=== PATIENT | female | born 1950 | race Caucasian/White ===

== ENCOUNTER 2017-10-09 15:49 | Observation (INO) | payer OTHER, MEDICARE ==
--- NOTE | 2017-10-09 16:14 | RAD REPORT ---
EXAM DESCRIPTION: CT - Head Brain Wo Cont - 10/09/2017 4:06 pm CLINICAL HISTORY: Right-sided weakness and numbness, slurred speech COMPARISON: CT head January 2015 TECHNIQUE: Axial 5 mm thick images of the head were obtained without IV contrast. All CT scans are performed using dose optimization technique as appropriate and may include automated exposure control or mA/KV adjustment according to patient size. FINDINGS: No intracranial hemorrhage, mass, edema or shift of mid-line structures. No acute infarcti on changes seen. No cortical edema or sulcal effacement. Mild to moderate atrophy changes are present . Patient has advanced chronic ischemic change. Ventricles are prominent and are borderline or slight ly out of proportion to the amount of volume loss. Correlation can be made with any normal pressure h ydrocephalus exam findings. Intracranial findings are not substantially different from the comparison . Mastoid air cells and visualized portions of the paranasal sinuses are clear. No acute bony findings. IMPRESSION: No intracranial hemorrhage and no acute cortical based infarction identified. Mild to moderate atrophy with advanced chronic ischemic change. Chronic ischemic change can mask non hemorrhagic infarction. Ventricular size is borderline to slightly out of proportion to volume loss. This pattern is stable b ut correlation can be made with any exam findings for normal pressure hydrocephalus.
--- NOTE | 2017-10-09 16:33 | RAD REPORT ---
EXAM DESCRIPTION: RAD - Chest Single View - 10/09/2017 4:23 pm CLINICAL HISTORY: Stroke chest film, shortness of breath COMPARISON: January 2015 TECHNIQUE: AP portable chest image was obtained 1612 hours . FINDINGS: No focal lung parenchymal process. No failure or volume overload. Interstitial markings ar e prominent but not clearly different. Heart and vasculature are normal. No measurable pleural effusi on and no pneumothorax. No gross bony abnormality seen. No acute aortic findings suspected. IMPRESSION: No acute cardiopulmonary process. No significant change from comparison.
[2017-10-09 17:00] LABS: Absolute Monocytes 0.8 K/uL (0.1-1.3); Absolute Neutrophil 5.3 K/uL (1.8-8.0); Basophils % 0.5 % (0-1.3); Eosinophils % 4.8 % (0-4.4); Hematocrit 42.4 % (36.0-45.0); Lymphocytes % 30.9 % (15.3-44.8); MCV 92.6 fL (80-100); Monocytes % 8.5 % (3.3-12.3); RBC Red Blood Cell Count 4.57 M/uL (3.86-4.86)
[2017-10-09 17:04] LABS: Protime INR 0.91
[2017-10-09] MEDS ORDERED: ASPIRIN 600 MG/SUPP PR ONE (17:05)
[2017-10-09] MEDS ORDERED: FOLIC ACID 5 MG/ML VIAL ONE (17:06)
[2017-10-09 17:39] LABS: Albumin 3.4 g/dL (3.4-5.0); Bilirubin Direct 0.1 mg/dL (0-0.2); Bilirubin Total 0.4 mg/dL (0.2-1.0); Magnesium 1.6 mg/dL (1.8-2.4); Potassium 3.5 mmol/L (3.5-5.1); Protein, Total 7.5 g/dL (6.4-8.2)
--- NOTE | 2017-10-09 17:55 | EDPHYS ---
Physician Documentation [facility] Name: Alesha Esposito Age: 67 yrs Sex: Female : 1950 Arrival Date: 10/09/2017 Time: 15:53 Bed 7 Private MD: Kandis Savage R ED Physician Jeff Dawkins HPI: 10/09 16:05 This 67 yrs old Female presents to ER via Wheelchair with complaints of S/S jr8 of Possible Stroke. 16:05 The patient's problem is reported as paresthesias, in right upper extremity, in right jr8 side of face, dysphasia, slurred speech. Onset: The symptoms/episode began/occurred acutely, today, at 15:30. Duration: This was a single incident. Context: the episode(s) was witnessed, by family. The symptoms are alleviated by nothing. The symptoms are aggravated by nothing. Associated signs and symptoms: The patient has no apparent associated signs or symptoms. Severity of symptoms: At their worst the symptoms were moderate in the emergency department the symptoms have improved moderately. Patient's baseline: Neuro: alert and fully oriented, Motor: no deficits, Ambulation: walks without assistance, Speech: normal. The patient has experienced a previous episode. The patient has not recently seen a physician. History of CVA in past. Sudden onset of trouble speaking and numbness of face and arm on right side . Historical: - Allergies: 19:35 Iodinated Contrast Media - IV Dye; aa1 - Home Meds: 19:35 metoprolol tartrate 25 mg Oral tab 2 tabs 2 times per day [Active]; Plavix 75 mg Oral aa1 tab 1 tab once daily [Active]; simvastatin 40 mg Oral tab 1 tab once daily [Active]; Humulin N Pen 100 unit/mL (3 mL) Sub-Q inpn 20 unit twice a day [Active]; - PMHx: 19:35 Diabetes - IDDM; Hypertension; High Cholesterol; aa1 - PSHx: 16:01 Heart stents; Cholecystectomy; Tonsillectomy; D \T\ C; hb - Immunization history:: Adult Immunizations up to date. - Social history:: Smoking status: Patient/guardian denies using tobacco. - Ebola Screening: : No symptoms or risks identified at this time. ROS: 16:05 Eyes: Negative for injury, pain, redness, and discharge, ENT: Negative for injury, jr8 pain, and discharge, Neck: Negative for injury, pain, and swelling, Cardiovascular: Negative for chest pain, palpitations, and edema, Respiratory: Negative for shortness of breath, cough, wheezing, and pleuritic chest pain, Abdomen/GI: Negative for abdominal pain, nausea, vomiting, diarrhea, and constipation, Back: Negative for injury and pain, MS/Extremity: Negative for injury and deformity, Skin: Negative for injury, rash, and discoloration. 16:05 Neuro: Positive for numbness, speech changes. Exam: 16:05 Eyes: Pupils equal round and reactive to light, extra-ocular motions intact. Lids and jr8 lashes normal. Conjunctiva and sclera are non-icteric and not injected. Cornea within normal limits. Periorbital areas with no swelling, redness, or edema. ENT: Nares patent. No nasal discharge, no septal abnormalities noted. Tympanic membranes are normal and external auditory canals are clear. Oropharynx with no redness, swelling, or masses, exudates, or evidence of obstruction, uvula midline. Mucous membranes moist. Neck: Trachea midline, no thyromegaly or masses palpated, and no cervical lymphadenopathy. Supple, full range of motion without nuchal rigidity, or vertebral point tenderness. No Meningismus. Cardiovascular: Regular rate and rhythm with a normal S1 and S2. No gallops, murmurs, or rubs. Normal PMI, no JVD. No pulse deficits. Respiratory: Lungs have equal breath sounds bilaterally, clear to auscultation and percussion. No rales, rhonchi or wheezes noted. No increased work of breathing, no retractions or nasal flaring. Abdomen/GI: Soft, non-tender, with normal bowel sounds. No distension or tympany. No guarding or rebound. No evidence of tenderness throughout. Back: No spinal tenderness. No costovertebral tenderness. Full range of motion. Skin: Warm, dry with normal turgor. Normal color with no rashes, no lesions, and no evidence of cellulitis. MS/ Extremity: Pulses equal, no cyanosis. Neurovascular intact. Full, normal range of motion. Neuro: Awake and alert, GCS 15, oriented to person, place, time, and situation. Cranial nerves II-XII grossly intact. Motor strength 5/5 in all extremities. Sensory grossly intact. Cerebellar exam normal. Normal gait. 16:21 Radiologist reports: No acute findings jr8 Vital Signs: 15:55 BP 130 / 65; Pulse 55; Resp 17; Temp 97.2(TE); Pulse Ox 97% on R/A; Pain 0/10; tw2 16:58 Weight 100.7 kg (R); hb 17:21 BP 114 / 60; Pulse 61; Resp 16; Pulse Ox 96% on R/A; Pain 0/10; ph 18:12 BP 118 / 62; Pulse 56; Resp 16; Pulse Ox 96% on R/A; ph 19:30 BP 144 / 76; Pulse 60; Resp 16; Pulse Ox 95% on R/A; Pain 0/10; aa1 20:24 BP 148 / 66; Pulse 63; Resp 16; Pulse Ox 96% on R/A; Pain 0/10; aa1 NIH Stroke Scale Scores: 16:05 NIHSS Score: 0 ph 16:05 NIHSS Score: 0 jr8 [place] Coma Score: 16:13 Eye Response: spontaneous(4). Verbal Response: oriented(5). Motor Response: obeys ph commands(6). Total: 15. MDM: 16:17 Patient medically screened. jr8 16:20 ED course: Patients symptoms have now resolved. No tPA advised given resolution of jr8 symptoms . 17:52 Data reviewed: vital signs, nurses notes, lab test result(s), EKG, radiologic studies, jr8 CT scan, MRI. Data interpreted: Pulse oximetry: on room air is 96 %. Interpretation: normal. Counseling: I had a detailed discussion with the patient and/or guardian regarding: the historical points, exam findings, and any diagnostic results supporting the discharge/admit diagnosis, lab results, radiology results, the need for further work-up and treatment in the hospital. Physician consultation: Chaka Moscoso MD was called at 17:53, was contacted at 17:53, regarding admission, to the telemetry unit. consult, patient's condition, and will see patient. ED course: Dr. Renee contacted and will see patient as well . 10/09 16:20 Order name: Hepatic Function; Complete Time: 17:44 jr8 10/09 16:20 Order name: Magnesium; Complete Time: 17:44 jr8 10/09 16:20 Order name: Basic Metabolic Panel; Complete Time: 17:44 jr8 10/09 16:20 Order name: CBC with Diff; Complete Time: 17:44 8 10/09 16:20 Order name: Protime (+inr); Complete Time: 17:44 8 10/09 16:20 Order name: Urine Microscopic Only; Complete Time: 02:09 8 10/09 15:57 Order name: Head Brain Wo Cont CT; Complete Time: 16:21 hb 10/09 16:20 Order name: Stroke CXR 1 View; Complete Time: 16:37 jr8 10/09 16:58 Order name: MRI - Brain Wo Cont hb 10/09 17:27 Order name: Glucose, Ancillary Testing; Complete Time: 17:44 EDMS 10/09 19:36 Order name: MRI; Complete Time: 02:09 EDMS 10/09 16:20 Order name: EKG; Complete Time: 16:21 8 10/09 16:20 Order name: Accucheck; Complete Time: 16:46 8 10/09 16:20 Order name: Cardiac monitoring; Complete Time: 16:45 8 10/09 16:20 Order name: EKG - Nurse/Tech; Complete Time: 16:45 8 10/09 16:20 Order name: IV Saline Lock; Complete Time: 17:00 [facility] 10/09 16:20 Order name: Labs collected and sent; Complete Time: 17:00 [facility] 10/09 16:20 Order name: NPO; Complete Time: 16:45 [facility] 10/09 16:20 Order name: O2 Per Protocol; Complete Time: 16:45 [facility] 10/09 16:20 Order name: O2 Sat Monitoring; Complete Time: 16:45 8 10/09 16:20 Order name: Stroke Swallow Screen; Complete Time: 16:34 10/09 18:05 Order name: CONS Physician Consult EDMS Administered Medications: 16:34 Not Given (Other Intervention Used): Aspirin Chewable Tablet 324 mg PO once; 81 mg la1 tablets x 4 17:10 Drug: foLIC Acid 1 mg Route: IVPB; Site: right antecubital; ph 18:16 Follow up: Response: No adverse reaction; IV Status: Completed infusion ph 17:10 Drug: Aspirin Suppository 300 mg Route: MN; ph 18:16 Follow up: Response: No adverse reaction ph 18:45 Drug: Magnesium Sulfate 2 grams Route: IVPB; Infused Over: 2 hrs; Site: right ph antecubital; 20:31 Follow up: IV Status: Completed infusion aa1 Point of Care Testing: Blood Glucose: 16:13 Blood Glucose: 101 mg/dL; ph Ranges: Critical Glucose Levels:Adult <50 mg/dl or >400 mg/dl <40 mg/dl or >180 mg/dl Disposition: 10/09/17 17:54 Hospitalization ordered by Chaka Moscoso for Observation. Preliminary diagnosis is Transient cerebral ischemic attack, unspecified. - Bed requested for Telemetry/MedSurg (observation). - Status is Observation. aa1 - Condition is Stable. - Problem is new. - Symptoms have improved. UTI on Admission? No NIH Stroke Scale - NIH Stroke Score Date: 10/09/2017 Time: 16:05 Total Score = 0 1a. Level of Consciousness (LOC) - 0(Alert) 1b. Level of Consciousness (LOC) (Year \T\ Age) - 0(Both) 1c. LOC Commands (Open \T\ Closes Eyes/Cnc Machinist 2Nd Shift) - 0(Both) 2. Best Gaze (Lateral Gaze Paresis) - 0(Normal) 3. Visual Field Loss - 0(No visual loss) 4. Facial Palsy - 0(Normal) 5a. Left Arm: Motor (10-second hold) - 0(No drift) 5b. Right Arm: Motor (10-second hold) - 0(No drift) 6a. Left Leg: Motor (5-second hold - always test supine) - 0(No drift) 6b. Right Leg: Motor (5-second hold - always test supine) - 0(No drift) 7. Limb Ataxia (finger/nose \T\ heel/naranjo - test with eyes open) - 0(Absent) 8. Sensory Loss (pinprick arms/legs/face) - 0(Normal) 9. Best Language: Aphasia (description/naming/reading) - 0(No aphasia) 10. Dysarthria (speech clarity - read or repeat words) - 0(Normal) 11. Extinction and Inattention (visual/tactile/auditory/spatial/personal) - 0(No abnormality) Initials: NIH Stroke Scale - NIH Stroke Score Date: 10/09/2017 Time: 16:05 Total Score = 0 1a. Level of Consciousness (LOC) - 0(Alert) 1b. Level of Consciousness (LOC) (Year \T\ Age) - 0(Both) 1c. LOC Commands (Open \T\ Closes Eyes/Cnc Machinist 2Nd Shift) - 0(Both) 2. Best Gaze (Lateral Gaze Paresis) - 0(Normal) 3. Visual Field Loss - 0(No visual loss) 4. Facial Palsy - 0(Normal) 5a. Left Arm: Motor (10-second hold) - 0(No drift) 5b. Right Arm: Motor (10-second hold) - 0(No drift) 6a. Left Leg: Motor (5-second hold - always test supine) - 0(No drift) 6b. Right Leg: Motor (5-second hold - always test supine) - 0(No drift) 7. Limb Ataxia (finger/nose \T\ heel/naranjo - test with eyes open) - 0(Absent) 8. Sensory Loss (pinprick arms/legs/face) - 0(Normal) 9. Best Language: Aphasia (description/naming/reading) - 0(No aphasia) 10. Dysarthria (speech clarity - read or repeat words) - 0(Normal) 11. Extinction and Inattention (visual/tactile/auditory/spatial/personal) - 0(No abnormality) Initials: jr8 Addendum: 10/11/2017 15:42 Co-signature as Attending Physician, Jeff Dawkins MD. gs Signatures: Dispatcher [employer] EDVT Nidhi Hernandez RN RN mw Kern, Alissa, RN RN aa1 Andrea Cristobal PA PA jr8 Hamzah Acosta RN RN laAlesha Salamanca RN RN Miriam Mcrae RN PAUL Jeff Dawkins MD MD Corrections: (The following items were deleted from the chart) 10/09 16:24 16:21 Chest Single View ordered. EDVT EDVT 19:28 17:54 Hospitalization Ordered by Chaka Moscoso MD for Observation. Preliminary diagnosis is Transient cerebral ischemic attack, unspecified. Bed requested for Telemetry/MedSurg (observation). Status is Observation. Condition is Stable. Problem is new. Symptoms have improved. UTI on Admission? No. jr8 20:37 19:28 10/09/2017 17:54 Hospitalization Ordered by Chaka Moscoso MD for aa1 Observation. Preliminary diagnosis is Transient cerebral ischemic attack, unspecified. Bed requested for Telemetry/MedSurg (observation). Status is Observation. Condition is Stable. Problem is new. Symptoms have improved. UTI on Admission? No. mw
--- NOTE | 2017-10-09 17:55 | ER ---
Nurse's Notes [facility] Name: Alesha Esposito Age: 67 yrs Sex: Female : 1950 Arrival Date: 10/09/2017 Time: 15:53 Bed 7 Private MD: Kanids Savage R Diagnosis: Transient cerebral ischemic attack, unspecified Presentation: 10/09 15:54 Presenting complaint: Patient states: less than an hour ago i was normal, then i tw2 started having some right sided face numbness, son states "she i just not acting herself". Transition of care: patient was not received from another setting of care. Onset of symptoms was October 09, 2017. Risk Assessment: Do you want to hurt yourself or someone else? Patient reports no desire to harm self or others. Initial Sepsis Screen: Does the patient meet any 2 criteria? No. Patient's initial sepsis screen is negative. Does the patient have a suspected source of infection? No. Patient's initial sepsis screen is negative. Care prior to arrival: None. 15:54 Method Of Arrival: Wheelchair tw2 15:54 Acuity: BERTRAM 2 tw2 15:58 Note Son reports slurred speech and right sided facial numbness that stated at approx 3 hb pm. + right facial droop, + slurred speech, - arm drift, bilat electrical lineworker strong and equal. Triage Assessment: 15:54 The onset of the patients symptoms was October 09, 2017 at 14:50. Neuro: Speech is tw2 slurred, Facial droop on left, Reports numbness in right eye, right cheek and right jaw. 15:56 The onset of the patients symptoms was less than three hours ago. General: Appears in tw2 no apparent distress. Behavior is cooperative, appropriate for age. Stroke Activation: Symptom onset < 3 hours Physician: Stroke Attending; Name: ; Notified At: ; Arrived At: Physician: Chief Stroke Resident; Name: ; Notified At: ; Arrived At: Physician: Stroke Resident; Name: ; Notified At: ; Arrived At: Physician: ED Attending; Name: ; Notified At: ; Arrived At: Physician: ED Resident; Name: ; Notified At: ; Arrived At: Historical: - Allergies: 19:35 Iodinated Contrast Media - IV Dye; aa1 - Home Meds: 19:35 metoprolol tartrate 25 mg Oral tab 2 tabs 2 times per day [Active]; Plavix 75 mg Oral aa1 tab 1 tab once daily [Active]; simvastatin 40 mg Oral tab 1 tab once daily [Active]; Humulin N Pen 100 unit/mL (3 mL) Sub-Q inpn 20 unit twice a day [Active]; - PMHx: 19:35 Diabetes - IDDM; Hypertension; High Cholesterol; aa1 - PSHx: 16:01 Heart stents; Cholecystectomy; Tonsillectomy; D \\T\\ C; hb - Immunization history:: Adult Immunizations up to date. - Social history:: Smoking status: Patient/guardian denies using tobacco. - Ebola Screening: : No symptoms or risks identified at this time. Screenin:59 Abuse screen: Denies threats or abuse. Denies injuries from another. Nutritional hb screening: No deficits noted. Tuberculosis screening: No symptoms or risk factors identified. 16:34 The patient has not been NPO before screening. The patient is alert, able to follow la1 commands. The patient does not exhibit slurred or garbled speech The patient is not exhibiting difficulty speaking. The patient is exhibiting difficulty understanding words. The patient is able to swallow own secretions with no drooling or need for suction. The patient did not tolerate one teaspoon of water. Drooling, immediate coughing, gurgling, or clearing of the throat was noted. Bedside swallow screening discontinued. Patient kept NPO until cleared by Speech Therapy or Physician. The patient failed the bedside swallow screening. The patient will be kept NPO until cleared by Speech Therapy or Physician. Provider notified of bedside swallow screening results: Andrea IZQUIERDO. 18:14 Fall Risk No fall in past 12 months (0 pts). Secondary diagnosis (15 points) TIA, IV ph access (20 points). Ambulatory Aid- None/Bed Rest/Nurse Assist (0 pts). Gait- Normal/Bed Rest/Wheelchair (0 pts) Mental Status- Oriented to own ability (0 pts). Assessment: 15:55 Reassessment: Pt taken to CT, accompanied by PAUL Pineda. ph 16:05 Reassessment: FELECIA Puga at bedside to assess pt. ph 16:05 T-PA (Activase) Screening: Contraindications: Other: symptoms resolved after pt ph returned from CT. General: Appears in no apparent distress. comfortable, obese, Behavior is calm, cooperative, appropriate for age. Pain: Denies pain. Neuro: Level of Consciousness is awake, alert, obeys commands, Oriented to person, place, time, situation, Lead Carpenter are equal bilaterally Speech is normal, Facial symmetry appears normal, Pupils are PERRLA, Reports difficulty swallowing since approx 1 month Denies weakness dizziness, paresthesias. Cardiovascular: Denies chest pain, nausea, shortness of breath, Capillary refill < 3 seconds in bilateral fingers Patient's skin is warm and dry. Rhythm is sinus bradycardia. Respiratory: Airway is patent Respiratory effort is even, unlabored, Respiratory pattern is regular, symmetrical. GI: Patient currently denies nausea, vomiting. : No signs and/or symptoms were reported regarding the genitourinary system. Derm: Skin is intact, is healthy with good turgor, Skin is pink, warm \\T\\ dry. Musculoskeletal: Circulation, motion, and sensation intact. Range of motion: intact in all extremities. 17:20 Reassessment: Patient appears in no apparent distress at this time. Patient and/or ph family updated on plan of care and expected duration. Pain level reassessed. Patient is alert, oriented x 3, equal unlabored respirations, skin warm/dry/pink. Pt resting quietly, denies pain at this time, awaiting MRI, VSS, family at bedside. 19:30 Reassessment: Patient appears in no apparent distress at this time. Patient and/or aa1 family updated on plan of care and expected duration. Pain level reassessed. Patient is alert, oriented x 3, equal unlabored respirations, skin warm/dry/pink. Pt back from MRI at this time. Awaiting bed assignment for admission. 20:30 Reassessment: Patient appears in no apparent distress at this time. Patient and/or aa1 family updated on plan of care and expected duration. Pain level reassessed. Patient is alert, oriented x 3, equal unlabored respirations, skin warm/dry/pink. Report called to Diane on 4th floor. Vital Signs: 15:55 BP 130 / 65; Pulse 55; Resp 17; Temp 97.2(TE); Pulse Ox 97% on R/A; Pain 0/10; tw2 16:58 Weight 100.7 kg (R); hb 17:21 BP 114 / 60; Pulse 61; Resp 16; Pulse Ox 96% on R/A; Pain 0/10; ph 18:12 BP 118 / 62; Pulse 56; Resp 16; Pulse Ox 96% on R/A; ph 19:30 BP 144 / 76; Pulse 60; Resp 16; Pulse Ox 95% on R/A; Pain 0/10; aa1 20:24 BP 148 / 66; Pulse 63; Resp 16; Pulse Ox 96% on R/A; Pain 0/10; aa1 Vitals: 17:21 Cardiac Rhythm Assessment Sinus rhythm. ph Regina Coma Score: 16:13 Eye Response: spontaneous(4). Verbal Response: oriented(5). Motor Response: obeys ph commands(6). Total: 15. NIH Stroke Scale Scores: 16:05 NIHSS Score: 0 ph 16:05 NIHSS Score: 0 jr8 ED Course: 15:53 Patient arrived in ED. sb2 15:53 Kandis Savage MD is Private Physician. sb2 15:55 Triage completed. tw2 15:55 Arm band placed on left wrist. hb 15:56 Alesha Rodríguez, PAUL is Primary Nurse. ph 16:04 CT completed. Patient tolerated procedure well. Patient moved to CT. Patient moved back nj from CT. 16:06 Head Brain Wo Cont CT In Process Unspecified. EDMS 16:17 Andrea Cristobal PA is PHCP. jr8 16:17 Jeff Dawkins MD is Attending Physician. jr8 16:23 Stroke CXR 1 View In Process Unspecified. EDMS 16:25 EKG done, by chemical research technician. reviewed by Andrea IZQUIERDO. dt2 17:54 Vernon Renee MD is Hospitalizing Provider. jr8 17:54 Chaka Moscoso MD is Hospitalizing Provider. jr8 18:14 No provider procedures requiring assistance completed. Patient admitted, IV remains in ph place. 18:15 Patient has correct armband on for positive identification. Placed in gown. Bed in low ph position. Call light in reach. Side rails up X2. surveillance system monitor on. Pulse ox on. NIBP on. Warm blanket given. 18:50 Patient moved to MRI via wheelchair. ka 19:09 MRI completed. Patient tolerated well. Patient moved back from MRI. ka Administered Medications: 16:34 Not Given (Other Intervention Used): Aspirin Chewable Tablet 324 mg PO once; 81 mg la1 tablets x 4 17:10 Drug: foLIC Acid 1 mg Route: IVPB; Site: right antecubital; ph 18:16 Follow up: Response: No adverse reaction; IV Status: Completed infusion ph 17:10 Drug: Aspirin Suppository 300 mg Route: NH; ph 18:16 Follow up: Response: No adverse reaction ph 18:45 Drug: Magnesium Sulfate 2 grams Route: IVPB; Infused Over: 2 hrs; Site: right ph antecubital; 20:31 Follow up: IV Status: Completed infusion aa1 Point of Care Testing: Blood Glucose: 16:13 Blood Glucose: 101 mg/dL; ph Ranges: Outcome: 17:54 Decision to Hospitalize by Provider. jaclyn 20:36 Admitted to Tele accompanied by malina, via wheelchair, room 414, with chart, Report aa1 called to PAUL Contreras 20:36 Condition: stable 20:36 Instructed on the need for admit, Demonstrated understanding of instructions. 20:37 Patient left the ED. aa1 NIH Stroke Scale - NIH Stroke Score Date: 10/09/2017 Time: 16:05 Total Score = 0 1a. Level of Consciousness (LOC) - 0(Alert) 1b. Level of Consciousness (LOC) (Year \\T\\ Age) - 0(Both) 1c. LOC Commands (Open \\T\\ Closes Eyes/Department Helper) - 0(Both) 2. Best Gaze (Lateral Gaze Paresis) - 0(Normal) 3. Visual Field Loss - 0(No visual loss) 4. Facial Palsy - 0(Normal) 5a. Left Arm: Motor (10-second hold) - 0(No drift) 5b. Right Arm: Motor (10-second hold) - 0(No drift) 6a. Left Leg: Motor (5-second hold - always test supine) - 0(No drift) 6b. Right Leg: Motor (5-second hold - always test supine) - 0(No drift) 7. Limb Ataxia (finger/nose \\T\\ heel/naranjo - test with eyes open) - 0(Absent) 8. Sensory Loss (pinprick arms/legs/face) - 0(Normal) 9. Best Language: Aphasia (description/naming/reading) - 0(No aphasia) 10. Dysarthria (speech clarity - read or repeat words) - 0(Normal) 11. Extinction and Inattention (visual/tactile/auditory/spatial/personal) - 0(No abnormality) Initials: solomon NIH Stroke Scale - NIH Stroke Score Date: 10/09/2017 Time: 16:05 Total Score = 0 1a. Level of Consciousness (LOC) - 0(Alert) 1b. Level of Consciousness (LOC) (Year \\T\\ Age) - 0(Both) 1c. LOC Commands (Open \\T\\ Closes Eyes/Department Helper) - 0(Both) 2. Best Gaze (Lateral Gaze Paresis) - 0(Normal) 3. Visual Field Loss - 0(No visual loss) 4. Facial Palsy - 0(Normal) 5a. Left Arm: Motor (10-second hold) - 0(No drift) 5b. Right Arm: Motor (10-second hold) - 0(No drift) 6a. Left Leg: Motor (5-second hold - always test supine) - 0(No drift) 6b. Right Leg: Motor (5-second hold - always test supine) - 0(No drift) 7. Limb Ataxia (finger/nose \\T\\ heel/naranjo - test with eyes open) - 0(Absent) 8. Sensory Loss (pinprick arms/legs/face) - 0(Normal) 9. Best Language: Aphasia (description/naming/reading) - 0(No aphasia) 10. Dysarthria (speech clarity - read or repeat words) - 0(Normal) 11. Extinction and Inattention (visual/tactile/auditory/spatial/personal) - 0(No abnormality) Initials: jr8 Signatures: Dispatcher [employer] EDMA Mindy Muse RN RN aa1 Andrea Cristobal PA PA jr8 Hamzah Acosta RN RN la1 Alesha Rodríguez RN RN Marlena Warren Heather, RN RN hb Wise, Tara RN RN tw2 Kana Mesa Sheri sb2 Teague, Danielle dt2 Corrections: (The following items were deleted from the chart) 15:59 15:54 Presenting complaint: Patient states: less than an hour ago i was normal, hb then i started having some right sided face numbness, son states "she i just not acting herself" tw2 16:02 15:58 Note Son reports slurred speech and right sided facial numbness that hb stated at approx 3 pm hb
--- NOTE | 2017-10-09 18:34 | EKG ---
Test Date: 2017-10-09 Test Time: 16:20:36 Asphalt Roller Person: DOMONIQUE MEASUREMENT RESULTS: Intervals: Rate: 56 DC: 164 QRSD: 110 QT: 536 QTc: 517 Altair: P: 42 DC: 164 QRS: -60 T: 220 INTERPRETIVE STATEMENTS: Sinus bradycardia Left axis deviation Septal infarct, age undetermined T wave abnormality, consider inferolateral ischemia Prolonged QT Abnormal ECG Compared to ECG 01/30/2015 17:00:13 T-wave abnormality now present Possible ischemia now present Prolonged QT interval now present Sinus rhythm no longer present Myocardial infarct finding still present Electronically Signed On 10-09-17 18:34:16 CDT by Karl Sales
[2017-10-09] MEDS ORDERED: Magnesium Sulfate 2gm IVPB 2 G/50 ML BAG IV ONE (18:35)
--- NOTE | 2017-10-09 19:36 | RAD REPORT ---
EXAM DESCRIPTION: MRI - Brain Wo Cont - 10/09/2017 7:11 pm CLINICAL HISTORY: Numbness;Slurred speech;TIA CVA COMPARISON: Head Brain Wo Cont dated 10/09/2017 TECHNIQUE: Multi-sequence, multiplanar MR imaging of the brain was performed without contrast. FINDINGS: No intracranial hemorrhage, hydrocephalus or extra-axial fluid collections.Moderate conflu ent T2/FLAIR hyperintensity in the periventricular and deep white matter is present compatible with c hronic microvascular ischemic changes. No edema or shift of midline structures. No findings to suspec t brain mass. DWI is negative for acute CVA. Midline structures are normally formed. Mild mucoperiosteal thickening affects both maxillary antra. The paranasal sinuses and mastoids are o therwise clear. IMPRESSION: Negative for acute CVA or other acute intracranial abnormality.
[2017-10-09] MEDS ORDERED: ACETAMINOPHEN 500 MG TAB PO PRN (19:52)
[2017-10-09] MEDS ORDERED: ONDANSETRON 4 MG/2 ML VIAL IV PRN (19:52)
[2017-10-09] MEDS ORDERED: ATORVASTATIN 20 MG TAB PO SCH (21:00)
--- NOTE | 2017-10-09 21:11 | RAD REPORT ---
EXAM DESCRIPTION: RAD - Chest Pa And Lat (2 Views) - 10/09/2017 8:56 pm CLINICAL HISTORY: Stroke Chest pain. COMPARISON: Chest Single View dated 10/09/2017; CHEST SINGLE VIEW dated 01/30/2015; CHEST SINGLE VIEW dated 01/03/2015 FINDINGS: The lungs are hyperexpanded but clear. The heart is normal in size. No displaced fractures . Small to moderate hiatal hernia. IMPRESSION: COPD.
[2017-10-09 21:30] LABS: Urine RBC <5 /HPF (NONE SEEN)
[2017-10-09 21:31] LABS: Urine Bacteria <20 /HPF (<20); Urine Culture Reflex Order REFLEXED
[2017-10-09 21:42] VITALS: O2SAT 96
[2017-10-09] MEDS: NA CHLORIDE 0.9% 1,000 ML IV SCH (22:28)
[2017-10-09] MEDS: levETIRAcetam 500 MG TAB PO SCH (22:30)
[2017-10-10 01:43] VITALS: BMI 35.8
[2017-10-10 05:13] LABS: Absolute Lymphocytes (CBC) 3.2 K/uL (0.7-4.9); Absolute Monocytes 0.6 K/uL (0.1-1.3); Basophils % 0.6 % (0-1.3); Eosinophils % 5.3 % (0-4.4); Hematocrit 37.4 % (36.0-45.0); Lymphocytes % 38.5 % (15.3-44.8); MCH 31.8 pg (27.0-35.0); MCV 89.8 fL (80-100); MPV 8.1 fL (7.6-11.3); Monocytes % 7.7 % (3.3-12.3); RBC Red Blood Cell Count 4.17 M/uL (3.86-4.86)
[2017-10-10 05:47] LABS: Bilirubin Total 0.5 mg/dL (0.2-1.0); Magnesium 1.9 mg/dL (1.8-2.4); Phosphorus 3.3 mg/dL (2.5-4.9); Potassium 3.2 mmol/L (3.5-5.1); Protein, Total 6.8 g/dL (6.4-8.2); T4,Total 8.8 ug/dL (4.8-13.9); Thyroid Stimulating Hormone 0.66 uIU/mL (0.36-3.74)
[2017-10-10] MEDS ORDERED: POTASSIUM CL SA 10 MEQ TAB PO ONE (05:56)
[2017-10-10] MEDS: levETIRAcetam 500 MG TAB PO SCH (08:54)
[2017-10-10] MEDS: NA CHLORIDE 0.9% 1,000 ML IV SCH (08:58)
[2017-10-10] MEDS ORDERED: ASPIRIN EC 81 MG TAB PO SCH (09:00)
[2017-10-10] MEDS ORDERED: AMLODIPINE 5 MG TAB PO SCH (09:00)
[2017-10-10] MEDS ORDERED: CLOPIDOGREL 75 MG TABLET PO SCH (09:00)
[2017-10-10] MEDS ORDERED: ENOXAPARIN 40 MG/0.4 ML SQ SCH (09:00)
[2017-10-10] MEDS ORDERED: POTASSIUM 25 MEQ EFFERV TAB PO ONE (11:32)
--- NOTE | 2017-10-10 11:49 | P.HP ---
Certification for Inpatient Patient admitted to: Observation With expected LOS: <2 Midnights Patient will require the following post-hospital care: None Practitioner: I am a practitioner with admitting privileges, knowledge of patient current condition, hospital course, and medical plan of care. Services: Services provided to patient in accordance with Admission requirements found in Title 42 Section 412.3 of the Code of Federal Regulations Patient History Date of Service: 10/09/17 Reason for admission: right upper and lower extremity paresthesias with slurred speech History of Present Illness: Patient is a 67-year-old female who was admitted to the hospital with right upper and lower extremity paresthesias along with slurred speech. Patient had been feeling poorly and her symptoms started is slightly before she came in. She was able to get a CT scan which was negative and an MRI which did not show an acute infarct. Her symptoms have pretty much resolved. She is no longer having any right-sided symptoms nor is her speech slurred. Her strength is back to her baseline. Will finish her workup and if her workup is negative then she should be able to discharge tomorrow. We will get Neurology consultation as well. Continue with anti-platelet therapy and statin therapy. Check lipid profile in the morning. DVT prophylaxis. Patient does need physical therapy or speech therapy eval if patient does not have any symptoms of weakness or dysphagia. Allergies Iodinated Contrast- Oral and IV Dye Allergy (Severe, Verified 10/09/17 23:59) Anaphylaxis Home Medications: Clopidogrel Bisulfate [Plavix*] 75 mg PO DAILY #30 tablet 01/04/15 Metoprolol Tartrate [Lopressor] 100 mg PO BID #60 tablet 01/04/15 Alendronate Sodium 70 mg PO DAILY 10/09/17 Amlodipine Besylate 10 mg PO DAILY 10/09/17 Insulin NPH Human Isophane [Humulin N Kwikpen] 20 units SQ BID 10/09/17 - Past Medical/Surgical History Has patient received pneumonia vaccine in the past: No Diabetic: Yes -: high cholesterol -: NIDDM x 10 yrs -: HTN -: CAD -: jason -: cardiac stentsx3 -: d&c x2 -: tonsillectomy - Family History Father Medical History: Heart disease, Hypertension, Diabetes Notes: "almost everybody" - Social History Smoking Status: Never smoker Alcohol use: No CD- Drugs: No Caffeine use: Yes Place of Residence: Home Review of Systems 10-point ROS is otherwise unremarkable Physical Examination - Vital Signs Temperature: 97.6 F Blood Pressure: 121/55 Pulse: 57 Respirations: 18 Pulse Ox (%): 98 - Physical Exam General: Alert, In no apparent distress, Oriented x3 HEENT: Atraumatic, PERRLA, Mucous membr. moist/pink, EOMI, Sclerae nonicteric Neck: Supple, 2+ carotid pulse no bruit, No LAD, Without JVD or thyroid abnormality Respiratory: Clear to auscultation bilaterally, Normal air movement Cardiovascular: Regular rate/rhythm, Normal S1 S2, No murmurs Gastrointestinal: Normal bowel sounds, Soft and benign, Non-distended, W/out succussion splash, No tenderness Musculoskeletal: No tenderness Integumentary: No rashes Neurological: Normal gait, Normal speech, Normal strength at 5/5 x4 extr, Normal tone, Sensation intact, Cranial nerves 3-12 intact, Normal affect Lymphatics: No axilla or inguinal lymphadenopathy - Studies Laboratory Data (last 24 hrs) 10/09/17 16:20: WBC 9.7, Hgb 14.2, Hct 42.4, Plt Count 325 10/09/17 16:08: PT 10.7, INR 0.91 10/09/17 16:08: Sodium 144, Potassium 3.5, BUN 23 H, Creatinine 1.80 H, Glucose 112 H, Magnesium 1.6 L, Total Bilirubin 0.4, AST 24, ALT 11 L, Alkaline Phosphatase 103 Assessment & Plan - Problems (Diagnosis) (1) TIA (transient ischemic attack) Onset Date: 10/10/17 Current Visit: Yes Status: Acute - Plan 1. MRI of the brain 2. Echocardiogram and carotid Doppler 3. Anti-platelet therapy and statin therapy; Lipid profile in the morning 4. Neurology consultation 5. Physical therapy/occupational therapy/speech therapy evaluation Not necessarily needed as patient's symptoms are stable. 6. DVT prophylaxis Discharge Plan: Home Plan to discharge in: 24 Hours - Advance Directives Does patient have a Living Will: No Does patient have a Durable POA for Healthcare: No - Code Status/Comfort Care Code Status Assessed: Yes Code Status: Full Code Critical Care: No Time Spent Managing PTS Care (In Minutes): 50
--- NOTE | 2017-10-10 15:48 | P.DS ---
Admission Date: 10/09/17 Discharge Date: 10/10/17 Disposition: ROUTINE DISCHARGE Discharge Condition: FAIR Reason for Admission: right upper and lower extremity paresthesias with slurred speech - Problems (1) TIA (transient ischemic attack) Onset Date: 10/10/17 Current Visit: Yes Status: Acute (2) Ischemic stroke Onset Date: 01/31/15 Current Visit: No Status: Chronic Brief History of Present Illness: Patient is a 67-year-old female who was admitted to the hospital with right upper and lower extremity paresthesias along with slurred speech. Patient had been feeling poorly and her symptoms started is slightly before she came in. She was able to get a CT scan which was negative and an MRI which did not show an acute infarct. Her symptoms have pretty much resolved. She is no longer having any right-sided symptoms nor is her speech slurred. Her strength is back to her baseline. Will finish her workup and if her workup is negative then she should be able to discharge tomorrow. We will get Neurology consultation as well. Continue with anti-platelet therapy and statin therapy. Check lipid profile in the morning. DVT prophylaxis. Patient does need physical therapy or speech therapy eval if patient does not have any symptoms of weakness or dysphagia. Hospital Course: Her symptoms resolved. Brain MRI was unremarkable. She was started on ASA/ Plavix. She is discharged home in stable condition, follow up Dr Renee. Vital Signs/Physical Exam: Temp Pulse Resp BP Pulse Ox 98.9 F 67 18 113/79 97 10/10/17 12:00 10/10/17 12:00 10/10/17 12:00 10/10/17 12:00 10/10/17 12:00 General: Alert, In no apparent distress HEENT: Atraumatic, PERRLA, EOMI Neck: Supple, JVD not distended Respiratory: Clear to auscultation bilaterally, Normal air movement Cardiovascular: Regular rate/rhythm, Normal S1 S2 Gastrointestinal: Normal bowel sounds, No tenderness Musculoskeletal: No tenderness Integumentary: No rashes Neurological: Normal speech, Normal tone, Normal affect Lymphatics: No axilla or inguinal lymphadenopathy Laboratory Data at Discharge: WBC 8.3 K/uL (4.3-10.9) D 10/10/17 04:20 Hgb 13.2 g/dL (12.0-15.0) 10/10/17 04:20 Hct 37.4 % (36.0-45.0) 10/10/17 04:20 Plt Count 284 K/uL (152-406) 10/10/17 04:20 PT 10.7 SECONDS (9.5-12.5) 10/09/17 16:08 INR 0.91 10/09/17 16:08 Sodium 143 mmol/L (136-145) 10/10/17 04:20 Potassium 3.5 mmol/L (3.5-5.1) 10/10/17 08:16 BUN 26 mg/dL (7-18) H 10/10/17 04:20 Creatinine 1.50 mg/dL (0.55-1.3) H 10/10/17 04:20 Glucose 95 mg/dL (74-106) 10/10/17 04:20 Phosphorus 3.3 mg/dL (2.5-4.9) 10/10/17 04:20 Magnesium 1.9 mg/dL (1.8-2.4) 10/10/17 04:20 Total Bilirubin 0.5 mg/dL (0.2-1.0) 10/10/17 04:20 AST 26 U/L (15-37) 10/10/17 04:20 ALT 10 U/L (12-78) L 10/10/17 04:20 Alkaline Phosphatase 94 U/L (45-117) 10/10/17 04:20 Triglycerides 137 mg/dL (<150) 10/10/17 04:20 Cholesterol 200 mg/dL (<200) 10/10/17 04:20 HDL Cholesterol 52 mg/dL (40-60) 10/10/17 04:20 Cholesterol/HDL Ratio 3.85 10/10/17 04:20 Home Medications: Clopidogrel Bisulfate [Plavix*] 75 mg PO DAILY #30 tablet 01/04/15 Metoprolol Tartrate [Lopressor] 100 mg PO BID #60 tablet 01/04/15 Alendronate Sodium 70 mg PO DAILY 10/09/17 Insulin NPH Human Isophane [Humulin N Kwikpen] 20 units SQ BID 10/09/17 Amlodipine [Norvasc*] 5 mg PO DAILY #30 tab 10/10/17 Aspirin [Durlaza] 162.5 mg PO DAILY #30 cap.er.24h 10/10/17 Atorvastatin Calcium [Lipitor*] 80 mg PO BEDTIME #0 tab 10/10/17 Atorvastatin Calcium [Lipitor] 80 mg PO BEDTIME #30 tablet 10/10/17 Potassium Chloride [K-Dur] 20 meq PO DAILY #14 tab.er.prt 10/10/17 levETIRAcetam [Keppra*] 500 mg PO BID #60 tab 10/10/17 New Medications: Amlodipine [Norvasc*] 5 mg PO DAILY #30 tab Aspirin [Durlaza] 162.5 mg PO DAILY #30 cap.er.24h Atorvastatin Calcium [Lipitor] 80 mg PO BEDTIME #30 tablet levETIRAcetam [Keppra*] 500 mg PO BID #60 tab Potassium Chloride [K-Dur] 20 meq PO DAILY #14 tab.er.prt Diet: Regular Activity: Ad jose Followup: eVrnon Renee MD [ACTIVE - CAN ADMIT] - 1-2 Weeks Time spent managing pt's care (in minutes): 15
[2017-10-10 17:00] VITALS: BP 138/71; TEMP 98
--- NOTE | 2017-10-11 01:08 | CON ---
Date of Consultation: 10/10/2017 Reason: TIA History: A 67-year-old lady whom I have seen in the past for prior stroke, stroke then hemorrhagical ly converted. She had a partial seizure. She is on Keppra briefly but resolved. Keppra was discont inued. She had been doing well. She was in her usual state of health until yesterday when she had a brupt onset dysarthria, right face, arm, and leg weakness and paresthesias, came to the Emergency Dep artment. Symptoms resolved while in the Emergency Department, therefore not a tPA candidate. Had a brain MRI, demonstrated no evidence of an acute stroke. Aspirin was added to her regimen. She was o n simvastatin 20 for lipid management that since has been changed to Lipitor 80. She seems reasonabl e since her LDL this morning was 121. Labs are unremarkable other than a slight elevation in a creat inine 1.5, glucose 130s-160s. CBC normal. Sedimentation rate 18. As noted, brain MRI normal. EKG is a sinus bradycardia with QTC of 517. She is back to baseline. Consultation was requested. Past Medical History: Hypertension, diabetes, prior stroke. Medications: Norvasc 5, aspirin 162, Lipitor 80, Plavix 75, Lovenox, Keppra, sodium chloride. Allergies: IODINE. Social History: Retired. Never smoked. Independent with activities of daily. Family History: No family history of hypercoagulable state. Review of Systems: General: Good health. Eyes: Negative. Ears, Nose, Throat: Dysarthria now resolved. Cardiovascular: Hypertension. Pulmonary: Negative. GI: Negative. : Negative. Musculoskeletal: Right-sided weakness, resolved. Neurologic: As noted. Psychiatric: Negative. Endocrine: Diabetes. Hematologic: Negative. Physical Examination: Vital Signs: On exam, 98, 77, 18, 138/71. General: Pleasant, elderly lady, lying in bed, in no distress. Awake, alert, oriented to time, pers on, place, situation. Heart: Sinus rhythm. No carotid bruits. Lungs: Clear. Abdomen: Soft. Bowel sounds present. Eyes: Pupils reactive. Ocular motion full without nystagmus. Visual carter, full to confrontation bilaterally. Facial strength and sensation are normal. Tongue protrudes evenly. Soft palate elevat es symmetrically bilaterally, edentulous. Extremities: Strength full. Sensation decreased symmetri diane distally. Reflexes 1/4. Toes are downgoing. Cerebellar exam demonstrates no ataxia. Gait no rmal. Pertinent Laboratory Data: As noted in history of present illness. Impression: Left subcortical ischemic transient ischemic attack. Plan: I agree with adding the aspirin to the Plavix. We will overlap that for 30 days and if she re dany asymptomatic, discontinue aspirin. I would discontinue the Keppra prior to discharge. If she has recurrent events, we can repeat an EEG as an outpatient. Suggest statin as noted. She can follo w up in the office in 2-4 weeks. Thank you for the consult. MIGUEL ÁNGEL Voice ID: [id number] Report ID: [id number]
--- NOTE | 2017-10-13 08:21 | ECHO ---
HEIGHT: 5 ft 6 in WEIGHT: 222 lb 0 oz DATE OF STUDY: 10/10/[address]: 2-DIMENSIONAL: YES M.MODE: YES DOPPLER: YES COLOR FLOW: YES TDS: NO PORTABLE: NO DEFINITY: NO BUBBLE STUDY: NO DIAGNOSIS: STROKE CARDIAC HISTORY: CATHERIZATION: NO SURGERY: NO PROSTHETIC VALVE: NO PACEMAKER: NO MEASUREMENTS (cm) DIASTOLIC (NORMALS) SYSTOLIC (NORMALS) IVSd 1.1 (0.6-1.2) LA Diam 3.8 (1.9-4.0) LVEF 67% LVIDd 5.1 (3.5-5.7) LVIDs 3.2 (2.0-3.5) %FS 37% LVPWd 1.3 (0.6-1.2) Ao Diam 3.5 (2.0-3.7) 2 DIMENSIONAL ASSESSMENT: RIGHT ATRIUM: NORMAL LEFT ATRIUM: NORMAL RIGHT VENTRICLE: NORMAL LEFT VENTRICLE: NORMAL TRICUSPID VALVE: NORMAL MITRAL VALVE: MITRAL ANNULAR CALCIFICATION PULMONIC VALVE: NORMAL AORTIC VALVE: NORMAL PERICARDIAL EFFUSION: NONE AORTIC ROOT: NORMAL LEFT VENTRICULAR WALL MOTION: NORMAL. DOPPLER/COLOR FLOW: MILD TRICUSPID REGURGITATION. COMMENTS: MILD TRICUSPID REGURGITATION. MITRAL ANNULAR CALCIFICATION. NORMAL LEFT VENTRICULAR SIZE AND FUNCTION. NO VEGETATION. TECHNOLOGIST: KIA MYERS
== END 2017-10-10 21:04 | disposition home or self-care (01) ==
LOC: ER 15:49 → ERHOLD 18:03 → 4TH 20:31
PROVIDERS: ADMIT Internal Medicine Hematology & Oncology; ATTEND Hospitalist
DX: G45.9 Transient cerebral ischemic attack, unspecified (principal); I10 Essential (primary) hypertension; E11.9 Type 2 diabetes mellitus without complications; I25.10 Atherosclerotic heart disease of native coronary artery without angina pectoris; Z86.73 Personal history of transient ischemic attack (TIA), and cerebral infarction without residual deficits; Z79.82 Long term (current) use of aspirin; Z95.5 Presence of coronary angioplasty implant and graft; Z91.041 Radiographic dye allergy status
CPT/HCPCS: 36415; 70450; 70551; 71045; 71046; 80048; 80053; 80061; 80076; 81015; 82962 ×5; 83735 ×2; 84100; 84132; 84436; 84443; 85025 ×2; 85610; 85652; 87086; 87088; 93005; 93306; 97163; G0378 ×2; J1650; J3475; J7030 ×2; 96365; 96366; 96367; 99285

== ENCOUNTER 2018-09-14 16:04 | Emergency (ER) | payer OTHER, MEDICARE ==
--- OUTSIDE RECORDS SUMMARY | 2018-09-14 16:07 | XMS REPORT ---
:1950 [facility] Address [address] [place] [address] [address] [place] [address] Care Team Providers Name Role Phone Unavailable Unavailable Unavailable Problems This patient has no known problems. Allergies, Adverse Reactions, Alerts This patient has no known allergies or adverse reactions. Medications This patient has no known medications.
--- NOTE | 2018-09-14 16:24 | RAD REPORT ---
EXAM DESCRIPTION: CT - Ct Stroke Brain Wo Cont - 09/14/2018 4:15 pm CLINICAL HISTORY: Dizziness;TIA Headache, drowsiness, CVA symptomology COMPARISON: Head Brain Wo Cont dated 10/09/2017; HEAD BRAIN W O CONTRAST dated 02/01/2015 TECHNIQUE: All CT scans are performed using dose optimization technique as appropriate and may inclu de automated exposure control or mA/KV adjustment according to patient size. FINDINGS: No intracranial hemorrhage, hydrocephalus or extra-axial fluid collection.Moderate general ized brain atrophy is present with moderate periventricular and deep white matter chronic microvascul ar ischemic changes.The degree of chronic changes could mask small underlying ischemic event. No midl ine shift evident. The paranasal sinuses and mastoids are clear. The calvarium is intact. IMPRESSION: No acute intracranial abnormality. If there is continued clinical concern for CVA, MR i maging of the brain would be recommended. The findings were discussed with Dr. Shelley On 09-14-18 at 4:20 p.m. by telephone.
[2018-09-14 16:28] LABS: Absolute Lymphocytes (CBC) 2.1 K/uL (0.7-4.9); Basophils % 0.5 % (0-1.3); Hematocrit 42.9 % (36.0-45.0); Lymphocytes % 26.4 % (15.3-44.8); MPV 8.3 fL (7.6-11.3); RBC Red Blood Cell Count 4.57 M/uL (3.86-4.86)
[2018-09-14 16:32] LABS: Protime INR 1.01
[2018-09-14 16:41] LABS: ALT/SGPT 9 U/L (12-78); AST/SGOT 13 U/L (15-37); Albumin 3.8 g/dL (3.4-5.0); Alkaline Phosphatase 119 U/L (45-117); BUN Blood Urea Nitrogen 34 mg/dL (7-18); Bicarbonate 27 mmol/L (21-32); Bilirubin Direct 0.2 mg/dL (0-0.2); Glucose Level 189 mg/dL (74-106); Magnesium 1.5 mg/dL (1.8-2.4); NT PRO-BNP 525 pg/mL (<125); Potassium 4.5 mmol/L (3.5-5.1); Protein, Total 8.3 g/dL (6.4-8.2); Sodium Level 140 mmol/L (136-145); Troponin (Emerg Dept Use Only) < 0.02 ng/mL (0.0-0.045)
[2018-09-14] MEDS ORDERED: NA CHLORIDE 0.9% 1,000 ML ONE (16:46)
[2018-09-14] MEDS ORDERED: FOLIC ACID 5 MG/ML VIAL ONE (16:46)
--- NOTE | 2018-09-14 16:57 | RAD REPORT ---
EXAM DESCRIPTION: RAD - Chest Single View - 09/14/2018 4:37 pm CLINICAL HISTORY: COUGH Chest pain. COMPARISON: Chest Pa And Lat (2 Views) dated 10/09/2017; Chest Single View dated 10/09/2017; CHEST SIN GLE VIEW dated 01/30/2015; CHEST SINGLE VIEW dated 01/03/2015 FINDINGS: Portable technique limits examination quality. The lungs are grossly clear. Left hemidiaphragmatic leaflet is mildly elevated. The heart is normal i n size. No displaced fractures. IMPRESSION: No acute intrathoracic process suspected.
--- NOTE | 2018-09-14 17:11 | RAD REPORT ---
EXAM DESCRIPTION: MRI - Brain Wo Cont - 09/14/2018 4:55 pm CLINICAL HISTORY: TIA Headache, drowsiness, CVA symptomology COMPARISON: Ct Stroke Brain Wo Cont dated 09/14/2018 TECHNIQUE: Multi-sequence, multiplanar MR imaging of the brain was performed without contrast. FINDINGS: No intracranial hemorrhage, hydrocephalus or extra-axial fluid collections. Moderate areas of T2 and FLAIR hyperintensity in the periventricular and deep white matter noted compatible with ch ronic microvascular ischemic changes. Areas of acute ischemia are seen in the posterior left frontal lobe involving the cortex and subcortical white matter. The largest of these regions measures 15 x 6 mm. No hemorrhagic component seen. Midline structures are normally formed. No midline shift evident. Mastoid air cells and paranasal sinuses are clear. IMPRESSION: Smaller areas of acute CVA are seen along the posterior left frontal lobe, largest measu ring 15 x 6 mm. No hemorrhage or midline shift evident.
[2018-09-14] MEDS ORDERED: ASPIRIN 81 MG CHEWABLE TABLET ONE (17:22)
--- NOTE | 2018-09-14 17:28 | ER ---
Nurse's Notes [facility] Name: Alesha Esposito Age: 68 yrs Sex: Female : 1950 Arrival Date: 09/14/2018 Time: 16:06 Bed 4 Private MD: Diagnosis: Unspecified kidney failure;Hypomagnesemia;Cerebral infarction-ischemic, left frontal Presentation: 09/14 16:06 Presenting complaint: Patient states: "I went to bed at 3 am and woke up today at 12pm aa5 with my right arm weak and numb". Pt taken to CT accompanied by me. 16:06 Transition of care: patient was not received from another setting of care. An acute aa5 neurological deficit is present. The patient has been moved to a treatment area. Pre-hospital glucose is not applicable to this patient. Onset of symptoms was September 14, 2018. Care prior to arrival: None. 16:06 Acuity: BERTRAM 2 aa5 16:06 Method Of Arrival: Wheelchair aa5 16:28 Risk Assessment: Do you want to hurt yourself or someone else? Patient reports no ph desire to harm self or others. Initial Sepsis Screen: Does the patient meet any 2 criteria? No. Patient's initial sepsis screen is negative. Does the patient have a suspected source of infection? No. Patient's initial sepsis screen is negative. Triage Assessment: 23:32 The onset of the patients symptoms was September 14, 2018 at 12:00. jd3 Stroke Activation: Physician: Stroke Attending; Name: ; Notified At: ; Arrived At: Physician: Chief Stroke Resident; Name: ; Notified At: ; Arrived At: Physician: Stroke Resident; Name: ; Notified At: ; Arrived At: Physician: ED Attending; Name: Agustin; Notified At: 16:08; Arrived At: 16:09 Physician: ED Resident; Name: ; Notified At: ; Arrived At: Historical: - Allergies: 16:27 Iodinated Contrast Media - IV Dye; ph - PMHx: 16:27 Diabetes - IDDM; High Cholesterol; Hypertension; ph - PSHx: 16:27 Heart stents; Cholecystectomy; Tonsillectomy; D \\T\\ C; ph - Immunization history:: Adult Immunizations unknown. - Social history:: Smoking status: Patient/guardian denies using tobacco. - Family history:: not pertinent. - Ebola Screening: : No symptoms or risks identified at this time. Screenin:26 Abuse screen: Denies threats or abuse. Denies injuries from another. Nutritional ph screening: No deficits noted. Tuberculosis screening: No symptoms or risk factors identified. Fall Risk No fall in past 12 months (0 pts). No secondary diagnosis (0 pts). IV access (20 points). Ambulatory Aid- None/Bed Rest/Nurse Assist (0 pts). Gait- Normal/Bed Rest/Wheelchair (0 pts) Mental Status- Oriented to own ability (0 pts). Total Zhang Fall Scale indicates Low Risk Score (25-44 pts). Fall prevention measures have been instituted. Side Rails Up X 2 Family Present and informed to notify staff if they need to leave bedside As available Patient and Family Educated on Fall Prevention Program and strategies. Assessment: 16:08 Reassessment: Code stroke called. ph 16:09 Reassessment: Pt taken to CT via wheelchair by triage nurse. ph 16:11 Reassessment: Labs drawn by woods laborer in CT . aa5 16:25 General: Appears in no apparent distress. comfortable, well groomed, Behavior is calm, ph cooperative, appropriate for age. Pain: Denies pain. Neuro: Level of Consciousness is awake, alert, obeys commands, Oriented to person, place, time, situation. Cardiovascular: Capillary refill < 3 seconds in bilateral fingers Patient's skin is warm and dry. Respiratory: Airway is patent Respiratory effort is even, unlabored, Respiratory pattern is regular, symmetrical. Derm: Skin is intact, Skin is pink, warm \\T\\ dry. Musculoskeletal: Circulation, motion, and sensation intact. Range of motion: intact in all extremities. 16:25 VAN Scoring: Arm Drift: Minor drift Visual Disturbance: No visual disturbance noted. ph Aphasia: No aphasia noted. Neglect: No neglect noted. T-PA (Activase) Screening: Contraindications: Patient reports onset of signs and symptoms of stroke greater than 6 hours ago: Yes. Is the patient on Aspirin, Heparin, or Warfarin: Yes. 16:40 Reassessment: Pt to MRI at this time VIA wheelchair. Respirations even and unlabored. ss Patient is smiling. 17:05 Patient has been NPO before screening. The patient is alert, and able to follow ph commands. The patient does not exhibit slurred or garbled speech. The patient is not exhibiting difficulty speaking. The patient does not exhibit difficulty understanding words. The patient is able to swallow own secretions with no drooling or need for suction. Patient tolerated one teaspoon of water. No drooling, immediate coughing, gurgling, or clearing of the throat was noted. The patient tolerated 90mL of water. No drooling, immediate coughing, gurgling, or clearing of the throat was noted. The patient passed the bedside swallow screening. Oral medications may be given as ordered. Contact Physician for further diet orders. Provider notified of bedside swallow screening results: Chris Velez MD. 18:00 Reassessment: Patient appears in no apparent distress at this time. Patient and/or ph family updated on plan of care and expected duration. Pain level reassessed. Patient is alert, oriented x 3, equal unlabored respirations, skin warm/dry/pink. Patient denies pain at this time. 19:08 Reassessment: Patient appears in no apparent distress at this time. Patient and/or ph family updated on plan of care and expected duration. Pain level reassessed. Patient is alert/active/playful, equal unlabored respirations, skin warm/dry/pink. Attempted to call report to [facility], asked to call back in 10 min because nurse was in report. 19:25 Reassessment: Attempted to call report for transfer, no answer, will attempt again. 20:12 VAN Scoring: Arm Drift: Minor drift Visual Disturbance: No visual disturbance noted. jd3 Aphasia: No aphasia noted. Neglect: No neglect noted. General: Appears in no apparent distress. comfortable, well groomed, Behavior is calm, cooperative, appropriate for age. Pain: Denies pain. Neuro: Level of Consciousness is awake, alert, obeys commands, Oriented to person, place, time, situation, Outreach Assistant are weak on right Weakness in right arm(s) Speech is normal, Facial symmetry appears normal, Pupils are PERRLA, Intact Reports numbness in right arm. Cardiovascular: Heart tones S1 S2 present Capillary refill < 3 seconds Patient's skin is warm and dry. Respiratory: Airway is patent Respiratory effort is even, unlabored, Respiratory pattern is regular, symmetrical, Breath sounds are clear bilaterally. GI: No signs and/or symptoms were reported involving the gastrointestinal system. : No signs and/or symptoms were reported regarding the genitourinary system. EENT: No signs and/or symptoms were reported regarding the EENT system. Derm: Skin is intact, Skin is dry, Skin is normal, Skin temperature is warm. Musculoskeletal: Circulation, motion, and sensation intact. Range of motion: intact in all extremities. 20:36 Reassessment: report given to Wilda MILLER at [facility]. jd3 21:54 Reassessment: Patient appears in no apparent distress at this time. Patient and/or jd3 family updated on plan of care and expected duration. Pain level reassessed. Patient is alert, oriented x 3, equal unlabored respirations, skin warm/dry/pink. awaiting transfer. Patient denies pain at this time. 23:03 Reassessment: Patient appears in no apparent distress at this time. Patient and/or jd3 family updated on plan of care and expected duration. Pain level reassessed. Patient is alert, oriented x 3, equal unlabored respirations, skin warm/dry/pink. pt resting in bed with eyes closed, even and unlabored respirations, call guardado in reach, family at bedside. rails up X 2. awaiting transfer. 23:33 VAN Scoring: Arm Drift: Minor drift Visual Disturbance: No visual disturbance noted. jd3 Aphasia: No aphasia noted. Neglect: No neglect noted. Reassessment: Patient appears in no apparent distress at this time. Patient and/or family updated on plan of care and expected duration. Pain level reassessed. Patient is alert, oriented x 3, equal unlabored respirations, skin warm/dry/pink. report given to EMS transport. Patient denies pain at this time. Vital Signs: 16:27 BP 189 / 75; Pulse 52; Resp 16; Temp 98.0; Pulse Ox 99% on R/A; ph 17:15 BP 149 / 65; Pulse 58; Resp 18; Pulse Ox 98% on R/A; Pain 0/10; ph 18:30 BP 150 / 57; Pulse 51; Resp 18; Temp 97.7; Pulse Ox 97% on R/A; Pain 0/10; ph 20:16 BP 158 / 89; Pulse 62; Resp 17 S; Pulse Ox 100% on R/A; jd3 21:55 BP 145 / 72; Pulse 58; Resp 19 S; Pulse Ox 98% on R/A; jd3 23:06 BP 146 / 67; Pulse 70; Resp 18 S; Pulse Ox 97% on R/A; jd3 NIH Stroke Scale Scores: 17:11 NIHSS Score: 2 timur 19:14 NIHSS Score: 2 ph 20:12 NIHSS Score: 1 jd3 23:33 NIHSS Score: 1 jd3 ED Course: 16:06 Patient arrived in ED. as 16:06 Arm band placed on. aa5 16:08 Alesha Rodríguez, RN is Primary Nurse. ph 16:09 Chris Velez MD is Attending Physician. timur 16:16 CT Stroke Brain w/o Contrast In Process Unspecified. EDMS 16:20 Triage completed. aa5 16:20 Inserted saline lock: 22 gauge in right antecubital area, using aseptic technique. ph 16:26 Patient has correct armband on for positive identification. Placed in gown. Bed in low ph position. Call light in reach. Side rails up X2. hall monitor on. Pulse ox on. NIBP on. Door closed. Noise minimized. Warm blanket given. 16:26 EKG done, by highway traffic control technician. reviewed by Chris Velez MD. sm3 16:39 XRAY Chest (1 view) In Process Unspecified. EDMS 16:48 Brain Wo Cont In Process Unspecified. EDMS 18:21 US Carotid Artery Bilateral In Process Unspecified. EDMS 19:12 No provider procedures requiring assistance completed. Patient admitted, IV remains in ph place. Administered Medications: 16:31 Drug: NS 0.9% 1000 ml Route: IV; Rate: 1 bolus; Site: right antecubital; ss 19:07 Follow up: Response: No adverse reaction; IV Status: Completed infusion; IV Intake: ph 1000ml 16:31 Drug: foLIC Acid 1 mg Route: IVPB; Site: right antecubital; ss 19:07 Follow up: Response: No adverse reaction; IV Status: Completed infusion ph 17:12 Drug: Aspirin 162 mg Route: PO; ph 19:07 Follow up: Response: No adverse reaction ph 17:12 CANCELLED (Duplicate Order): Aspirin Chewable Tablet 162 mg PO once ph 17:35 Drug: Magnesium Sulfate 2 grams Route: IVPB; Infused Over: 2 hrs; Site: right ph antecubital; 18:58 Follow up: Response: No adverse reaction; IV Status: Completed infusion ph Point of Care Testing: Blood Glucose: 16:24 Blood Glucose: 196 mg/dL; ss Ranges: Intake: 19:07 IV: 1000ml; Total: 1000ml. ph Outcome: 17:27 ER care complete, transfer ordered by . timur 23:32 Transferred by ground EMS to [facility], Transfer form completed. jd3 X-rays sent w/ patient. Note: report given to [facility] 23:32 Condition: stable 23:32 Instructed on the need for transfer, Demonstrated understanding of instructions. 23:34 Patient left the ED. jd3 NIH Stroke Scale - NIH Stroke Score Date: 09/14/2018 Time: 17:11 Total Score = 2 1a. Level of Consciousness (LOC) - 0(Alert) 1b. Level of Consciousness (LOC) (Year \\T\\ Age) - 0(Both) 1c. LOC Commands (Open \\T\\ Closes Eyes/Dimmer Board Operator) - 0(Both) 2. Best Gaze (Lateral Gaze Paresis) - 0(Normal) 3. Visual Field Loss - 0(No visual loss) 4. Facial Palsy - 0(Normal) 5a. Left Arm: Motor (10-second hold) - 0(No drift) 5b. Right Arm: Motor (10-second hold) - 1(Drift) 6a. Left Leg: Motor (5-second hold - always test supine) - 0(No drift) 6b. Right Leg: Motor (5-second hold - always test supine) - 0(No drift) 7. Limb Ataxia (finger/nose \\T\\ heel/naranjo - test with eyes open) - 1(Present in one limb) 8. Sensory Loss (pinprick arms/legs/face) - 0(Normal) 9. Best Language: Aphasia (description/naming/reading) - 0(No aphasia) 10. Dysarthria (speech clarity - read or repeat words) - 0(Normal) 11. Extinction and Inattention (visual/tactile/auditory/spatial/personal) - 0(No abnormality) Initials: timur NIH Stroke Scale - NIH Stroke Score Date: 09/14/2018 Time: 19:14 Total Score = 2 1a. Level of Consciousness (LOC) - 0(Alert) 1b. Level of Consciousness (LOC) (Year \\T\\ Age) - 0(Both) 1c. LOC Commands (Open \\T\\ Closes Eyes/Dimmer Board Operator) - 0(Both) 2. Best Gaze (Lateral Gaze Paresis) - 0(Normal) 3. Visual Field Loss - 0(No visual loss) 4. Facial Palsy - 0(Normal) 5a. Left Arm: Motor (10-second hold) - 0(No drift) 5b. Right Arm: Motor (10-second hold) - 1(Drift) 6a. Left Leg: Motor (5-second hold - always test supine) - 0(No drift) 6b. Right Leg: Motor (5-second hold - always test supine) - 0(No drift) 7. Limb Ataxia (finger/nose \\T\\ heel/naranjo - test with eyes open) - 1(Present in one limb) 8. Sensory Loss (pinprick arms/legs/face) - 0(Normal) 9. Best Language: Aphasia (description/naming/reading) - 0(No aphasia) 10. Dysarthria (speech clarity - read or repeat words) - 0(Normal) 11. Extinction and Inattention (visual/tactile/auditory/spatial/personal) - 0(No abnormality) Initials: NIH Stroke Scale - NIH Stroke Score Date: 09/14/2018 Time: 20:12 Total Score = 1 1a. Level of Consciousness (LOC) - 0(Alert) 1b. Level of Consciousness (LOC) (Year \\T\\ Age) - 0(Both) 1c. LOC Commands (Open \\T\\ Closes Eyes/Dimmer Board Operator) - 0(Both) 2. Best Gaze (Lateral Gaze Paresis) - 0(Normal) 3. Visual Field Loss - 0(No visual loss) 4. Facial Palsy - 0(Normal) 5a. Left Arm: Motor (10-second hold) - 0(No drift) 5b. Right Arm: Motor (10-second hold) - 1(Drift) 6a. Left Leg: Motor (5-second hold - always test supine) - 0(No drift) 6b. Right Leg: Motor (5-second hold - always test supine) - 0(No drift) 7. Limb Ataxia (finger/nose \\T\\ heel/naranjo - test with eyes open) - 0(Absent) 8. Sensory Loss (pinprick arms/legs/face) - 0(Normal) 9. Best Language: Aphasia (description/naming/reading) - 0(No aphasia) 10. Dysarthria (speech clarity - read or repeat words) - 0(Normal) 11. Extinction and Inattention (visual/tactile/auditory/spatial/personal) - 0(No abnormality) Initials: trisha NIH Stroke Scale - NIH Stroke Score Date: 09/14/2018 Time: 23:33 Total Score = 1 1a. Level of Consciousness (LOC) - 0(Alert) 1b. Level of Consciousness (LOC) (Year \\T\\ Age) - 0(Both) 1c. LOC Commands (Open \\T\\ Closes Eyes/Dimmer Board Operator) - 0(Both) 2. Best Gaze (Lateral Gaze Paresis) - 0(Normal) 3. Visual Field Loss - 0(No visual loss) 4. Facial Palsy - 0(Normal) 5a. Left Arm: Motor (10-second hold) - 0(No drift) 5b. Right Arm: Motor (10-second hold) - 1(Drift) 6a. Left Leg: Motor (5-second hold - always test supine) - 0(No drift) 6b. Right Leg: Motor (5-second hold - always test supine) - 0(No drift) 7. Limb Ataxia (finger/nose \\T\\ heel/naranjo - test with eyes open) - 0(Absent) 8. Sensory Loss (pinprick arms/legs/face) - 0(Normal) 9. Best Language: Aphasia (description/naming/reading) - 0(No aphasia) 10. Dysarthria (speech clarity - read or repeat words) - 0(Normal) 11. Extinction and Inattention (visual/tactile/auditory/spatial/personal) - 0(No abnormality) Initials: trisha Signatures: Dispatcher [employer] EDChris Chan MD MD cha Martinez, Amelia as Calderon, Audri, PAUL RN aa5 Veena Reed RN RN Alesha Rodríguez RN RN Raul Tena RN RN jd3 Nohemy Felix [facility] Corrections: (The following items were deleted from the chart) 16:19 16:08 Arm band placed on aa5 aa5 19:15 16:25 NIHSS Score: 1 ph ph 21:55 20:36 Reassessment: report given to Wilda MILLER at [facility]. trisha rico
--- NOTE | 2018-09-14 17:29 | EDPHYS ---
Physician Documentation [facility] Name: Alesha Esposito Age: 68 yrs Sex: Female : 1950 Arrival Date: 09/14/2018 Time: 16:06 Bed 4 Private MD: ED Physician Chris Velez HPI: 09/14 17:06 This 68 yrs old Female presents to ER via Wheelchair with complaints of S/S timur of Possible Stroke. 17:06 The patient's problem is reported as weakness, in the left upper extremity. Onset: The timur symptoms/episode began/occurred this morning, at an unknown time. Duration: This was a single incident, The episode is continuous. Context: the episode(s) was witnessed, by no one, symptoms became apparent upon waking, occurred at home, occurred while the patient was asleep. The symptoms are alleviated by nothing. The symptoms are aggravated by nothing. Associated signs and symptoms: The patient has no apparent associated signs or symptoms. Severity of symptoms: At their worst the symptoms were mild in the emergency department the symptoms are unchanged. Patient's baseline: Neuro: alert and fully oriented, Motor: right arm weakness. Historical: - Allergies: 16:27 Iodinated Contrast Media - IV Dye; ph - PMHx: 16:27 Diabetes - IDDM; High Cholesterol; Hypertension; ph - PSHx: 16:27 Heart stents; Cholecystectomy; Tonsillectomy; D \T\ C; ph - Immunization history:: Adult Immunizations unknown. - Social history:: Smoking status: Patient/guardian denies using tobacco. - Family history:: not pertinent. - Ebola Screening: : No symptoms or risks identified at this time. ROS: 17:06 Constitutional: Negative for fever, chills, and weight loss, Eyes: Negative for injury, timur pain, redness, and discharge, ENT: Negative for injury, pain, and discharge, Neck: Negative for injury, pain, and swelling, Cardiovascular: Negative for chest pain, palpitations, and edema, Respiratory: Negative for shortness of breath, cough, wheezing, and pleuritic chest pain, Abdomen/GI: Negative for abdominal pain, nausea, vomiting, diarrhea, and constipation, Back: Negative for injury and pain, : Negative for injury, bleeding, discharge, and swelling, Skin: Negative for injury, rash, and discoloration, Neuro: Negative for headache, weakness, numbness, tingling, and seizure, Psych: Negative for depression, anxiety, suicide ideation, homicidal ideation, and hallucinations, Allergy/Immunology: Negative for hives, rash, and allergies, Endocrine: Negative for neck swelling, polydipsia, polyuria, polyphagia, and marked weight changes, Hematologic/Lymphatic: Negative for swollen nodes, abnormal bleeding, and unusual bruising. 17:06 MS/extremity: Positive for decreased range of motion, of the right arm. Exam: 17:06 Radiologist reports: neg timur 17:06 Constitutional: This is a well developed, well nourished patient who is awake, alert, and in no acute distress. Head/Face: Normocephalic, atraumatic. Eyes: Pupils equal round and reactive to light, extra-ocular motions intact. Lids and lashes normal. Conjunctiva and sclera are non-icteric and not injected. Cornea within normal limits. Periorbital areas with no swelling, redness, or edema. ENT: Nares patent. No nasal discharge, no septal abnormalities noted. Tympanic membranes are normal and external auditory canals are clear. Oropharynx with no redness, swelling, or masses, exudates, or evidence of obstruction, uvula midline. Mucous membranes moist. Neck: Trachea midline, no thyromegaly or masses palpated, and no cervical lymphadenopathy. Supple, full range of motion without nuchal rigidity, or vertebral point tenderness. No Meningismus. Chest/axilla: Normal chest wall appearance and motion. Nontender with no deformity. No lesions are appreciated. Cardiovascular: Regular rate and rhythm with a normal S1 and S2. No gallops, murmurs, or rubs. Normal PMI, no JVD. No pulse deficits. Respiratory: Lungs have equal breath sounds bilaterally, clear to auscultation and percussion. No rales, rhonchi or wheezes noted. No increased work of breathing, no retractions or nasal flaring. Abdomen/GI: Soft, non-tender, with normal bowel sounds. No distension or tympany. No guarding or rebound. No evidence of tenderness throughout. Back: No spinal tenderness. No costovertebral tenderness. Full range of motion. Female : Normal external genitalia. Skin: Warm, dry with normal turgor. Normal color with no rashes, no lesions, and no evidence of cellulitis. Neuro: Awake and alert, GCS 15, oriented to person, place, time, and situation. Cranial nerves II-XII grossly intact. Motor strength 5/5 in all extremities. Sensory grossly intact. Cerebellar exam normal. Normal gait. Psych: Awake, alert, with orientation to person, place and time. Behavior, mood, and affect are within normal limits. 17:06 Musculoskeletal/extremity: Extremities: noted in the right arm: decreased ROM, DVT Exam: No signs of deep vein thrombosis. no pain, no swelling, no tenderness, negative Homans' sign noted on exam, no appreciated bluish discoloration, no erythema, no increased warmth. Vital Signs: 16:27 BP 189 / 75; Pulse 52; Resp 16; Temp 98.0; Pulse Ox 99% on R/A; ph 17:15 BP 149 / 65; Pulse 58; Resp 18; Pulse Ox 98% on R/A; Pain 0/10; ph 18:30 BP 150 / 57; Pulse 51; Resp 18; Temp 97.7; Pulse Ox 97% on R/A; Pain 0/10; ph 20:16 BP 158 / 89; Pulse 62; Resp 17 S; Pulse Ox 100% on R/A; jd3 21:55 BP 145 / 72; Pulse 58; Resp 19 S; Pulse Ox 98% on R/A; jd3 23:06 BP 146 / 67; Pulse 70; Resp 18 S; Pulse Ox 97% on R/A; jd3 NIH Stroke Scale Scores: 17:11 NIHSS Score: 2 timur 19:14 NIHSS Score: 2 ph 20:12 NIHSS Score: 1 jd3 23:33 NIHSS Score: 1 jd3 MDM: 16:09 Patient medically screened. [facility] 16:20 ED course: CT no acute findings per Dr. Adler.. rn 17:06 Data reviewed: vital signs, nurses notes, lab test result(s), EKG, radiologic studies, [facility] CT scan, doppler, MRI, plain films. 09/14 16:10 Order name: Basic Metabolic Panel [facility] 09/14 16:10 Order name: CBC with Diff; Complete Time: 17:16 [facility] 09/14 16:10 Order name: LFT's [facility] 09/14 16:10 Order name: Magnesium; Complete Time: 17:16 [facility] 09/14 16:10 Order name: NT PRO-BNP; Complete Time: 17:16 [facility] 09/14 16:10 Order name: PT-INR; Complete Time: 17:16 [facility] 09/14 16:10 Order name: Troponin (emerg Dept Use Only); Complete Time: 17:16 [facility] 09/14 16:10 Order name: XRAY Chest (1 view); Complete Time: 17:16 [facility] 09/14 16:10 Order name: CT Stroke Brain w/o Contrast; Complete Time: 17:16 [facility] 09/14 16:12 Order name: Basic Metabolic Panel; Complete Time: 17:16 [facility] 09/14 16:13 Order name: Liver (Hepatic) Function; Complete Time: 17:16 [facility] 09/14 16:48 Order name: Brain Wo Cont; Complete Time: 17:16 [facility] 09/14 17:11 Order name: US Carotid Artery Bilateral [facility] 09/14 16:10 Order name: EKG; Complete Time: 16:13 [facility] 09/14 16:10 Order name: Cardiac monitoring; Complete Time: 16:25 [facility] 09/14 16:10 Order name: EKG - Nurse/Tech; Complete Time: 16:25 [facility] 09/14 16:10 Order name: IV Saline Lock; Complete Time: 16:25 [facility] 09/14 16:10 Order name: Labs collected and sent; Complete Time: 16: [facility] 09/14 16:10 Order name: O2 Per Protocol; Complete Time: 16: [facility] 09/14 16:10 Order name: O2 Sat Monitoring; Complete Time: 16:26 [facility] Administered Medications: 16:31 Drug: NS 0.9% 1000 ml Route: IV; Rate: 1 bolus; Site: right antecubital; ss 19:07 Follow up: Response: No adverse reaction; IV Status: Completed infusion; IV Intake: ph 1000ml 16:31 Drug: foLIC Acid 1 mg Route: IVPB; Site: right antecubital; ss 19:07 Follow up: Response: No adverse reaction; IV Status: Completed infusion ph 17:12 Drug: Aspirin 162 mg Route: PO; ph 19:07 Follow up: Response: No adverse reaction ph 17:12 CANCELLED (Duplicate Order): Aspirin Chewable Tablet 162 mg PO once ph 17:35 Drug: Magnesium Sulfate 2 grams Route: IVPB; Infused Over: 2 hrs; Site: right antecubital; 18:58 Follow up: Response: No adverse reaction; IV Status: Completed infusion ph Point of Care Testing: Blood Glucose: 16:24 Blood Glucose: 196 mg/dL; ss Ranges: Critical Glucose Levels:Adult <50 mg/dl or >400 mg/dl <40 mg/dl or >180 mg/dl Disposition: 09/14/18 17:27 Transfer ordered to [facility]. Diagnosis are Unspecified kidney failure, Hypomagnesemia, Cerebral infarction - ischemic, left frontal. - Reason for transfer: Higher level of care. - Accepting physician is to [facility], neuro. - Condition is Fair. - Problem is new. - Symptoms have improved. NIH Stroke Scale - NIH Stroke Score Date: 09/14/2018 Time: 17:11 Total Score = 2 1a. Level of Consciousness (LOC) - 0(Alert) 1b. Level of Consciousness (LOC) (Year \T\ Age) - 0(Both) 1c. LOC Commands (Open \T\ Closes Eyes/Mixing Machine Feeder) - 0(Both) 2. Best Gaze (Lateral Gaze Paresis) - 0(Normal) 3. Visual Field Loss - 0(No visual loss) 4. Facial Palsy - 0(Normal) 5a. Left Arm: Motor (10-second hold) - 0(No drift) 5b. Right Arm: Motor (10-second hold) - 1(Drift) 6a. Left Leg: Motor (5-second hold - always test supine) - 0(No drift) 6b. Right Leg: Motor (5-second hold - always test supine) - 0(No drift) 7. Limb Ataxia (finger/nose \T\ heel/naranjo - test with eyes open) - 1(Present in one limb) 8. Sensory Loss (pinprick arms/legs/face) - 0(Normal) 9. Best Language: Aphasia (description/naming/reading) - 0(No aphasia) 10. Dysarthria (speech clarity - read or repeat words) - 0(Normal) 11. Extinction and Inattention (visual/tactile/auditory/spatial/personal) - 0(No abnormality) Initials: timur NIH Stroke Scale - NIH Stroke Score Date: 09/14/2018 Time: 19:14 Total Score = 2 1a. Level of Consciousness (LOC) - 0(Alert) 1b. Level of Consciousness (LOC) (Year \T\ Age) - 0(Both) 1c. LOC Commands (Open \T\ Closes Eyes/Mixing Machine Feeder) - 0(Both) 2. Best Gaze (Lateral Gaze Paresis) - 0(Normal) 3. Visual Field Loss - 0(No visual loss) 4. Facial Palsy - 0(Normal) 5a. Left Arm: Motor (10-second hold) - 0(No drift) 5b. Right Arm: Motor (10-second hold) - 1(Drift) 6a. Left Leg: Motor (5-second hold - always test supine) - 0(No drift) 6b. Right Leg: Motor (5-second hold - always test supine) - 0(No drift) 7. Limb Ataxia (finger/nose \T\ heel/naranjo - test with eyes open) - 1(Present in one limb) 8. Sensory Loss (pinprick arms/legs/face) - 0(Normal) 9. Best Language: Aphasia (description/naming/reading) - 0(No aphasia) 10. Dysarthria (speech clarity - read or repeat words) - 0(Normal) 11. Extinction and Inattention (visual/tactile/auditory/spatial/personal) - 0(No abnormality) Initials: NIH Stroke Scale - NIH Stroke Score Date: 09/14/2018 Time: 20:12 Total Score = 1 1a. Level of Consciousness (LOC) - 0(Alert) 1b. Level of Consciousness (LOC) (Year \T\ Age) - 0(Both) 1c. LOC Commands (Open \T\ Closes Eyes/Mixing Machine Feeder) - 0(Both) 2. Best Gaze (Lateral Gaze Paresis) - 0(Normal) 3. Visual Field Loss - 0(No visual loss) 4. Facial Palsy - 0(Normal) 5a. Left Arm: Motor (10-second hold) - 0(No drift) 5b. Right Arm: Motor (10-second hold) - 1(Drift) 6a. Left Leg: Motor (5-second hold - always test supine) - 0(No drift) 6b. Right Leg: Motor (5-second hold - always test supine) - 0(No drift) 7. Limb Ataxia (finger/nose \T\ heel/naranjo - test with eyes open) - 0(Absent) 8. Sensory Loss (pinprick arms/legs/face) - 0(Normal) 9. Best Language: Aphasia (description/naming/reading) - 0(No aphasia) 10. Dysarthria (speech clarity - read or repeat words) - 0(Normal) 11. Extinction and Inattention (visual/tactile/auditory/spatial/personal) - 0(No abnormality) Initials: trisha NIH Stroke Scale - NIH Stroke Score Date: 09/14/2018 Time: 23:33 Total Score = 1 1a. Level of Consciousness (LOC) - 0(Alert) 1b. Level of Consciousness (LOC) (Year \T\ Age) - 0(Both) 1c. LOC Commands (Open \T\ Closes Eyes/Mixing Machine Feeder) - 0(Both) 2. Best Gaze (Lateral Gaze Paresis) - 0(Normal) 3. Visual Field Loss - 0(No visual loss) 4. Facial Palsy - 0(Normal) 5a. Left Arm: Motor (10-second hold) - 0(No drift) 5b. Right Arm: Motor (10-second hold) - 1(Drift) 6a. Left Leg: Motor (5-second hold - always test supine) - 0(No drift) 6b. Right Leg: Motor (5-second hold - always test supine) - 0(No drift) 7. Limb Ataxia (finger/nose \T\ heel/naranjo - test with eyes open) - 0(Absent) 8. Sensory Loss (pinprick arms/legs/face) - 0(Normal) 9. Best Language: Aphasia (description/naming/reading) - 0(No aphasia) 10. Dysarthria (speech clarity - read or repeat words) - 0(Normal) 11. Extinction and Inattention (visual/tactile/auditory/spatial/personal) - 0(No abnormality) Initials: trisha Signatures: Dispatcher [employer] EDMS Chris Velez MD MD cha Nieto, Roman, MD MD rn Smirch, Shelby, RN RN ss Alesha Rodríguez RN RN ph Raul Tena RN RN jd3 Corrections: (The following items were deleted from the chart) 16:47 16:13 MR STROKE PROTOCOL+MRI.RAD.BRZ ordered. [facility] 17:12 17:11 Aspirin Chewable Tablet 162 mg PO once ordered. timur ph 23:34 17:27 09/14/2018 17:27 Transfer ordered to [facility]. jd3 Diagnosis is Unspecified kidney failure; Hypomagnesemia; Cerebral infarction - ischemic, left frontal. Reason for transfer: Higher level of care. Accepting physician is to [facility], neuro. Condition is Fair. Problem is new. Symptoms have improved. timur
[2018-09-14] MEDS ORDERED: Magnesium Sulfate 2gm IVPB 2 G/50 ML BAG IV ONE (17:43)
--- NOTE | 2018-09-14 18:01 | RAD REPORT ---
EXAM DESCRIPTION: US - CP - 09/14/2018 5:54 pm CLINICAL HISTORY: Dizziness;TIA Headache, CVA, drowsiness COMPARISON: CAROTID ARTERY BILATERAL dated 02/01/2015 TECHNIQUE: Real-time sonographic evaluation of both carotid systems was performed. Doppler interroga tion was performed with waveform tracing bilaterally. FINDINGS: Normal high resistance waveforms are noted in both external carotid arteries. The common c arotid arteries and internal carotid arteries show normal low resistance waveforms. Mild mixed plaque is present involving both proximal internal carotid arteries, slightly greater on t he left. Peak systolic and end diastolic velocity values and the ICA/CCA ratios are in the non-hemody namically significant range. Antegrade flow seen in both vertebral arteries. IMPRESSION: Mild mixed plaque is seen in both proximal internal carotid arteries, slightly greater o n the left. No evidence of a hemodynamically significant stenosis.
[2018-09-15 01:55] VITALS: TEMP 97.7
[2018-09-15 01:59] VITALS: BP 146/67; O2SAT 97
--- NOTE | 2018-09-15 10:40 | EKG ---
Test Date: 2018-09-14 Test Time: 16:19:34 Blockman: SUZIE MEASUREMENT RESULTS: Intervals: Rate: 58 CO: 164 QRSD: 96 QT: 484 QTc: 475 [place]: P: 67 CO: 164 QRS: -58 T: 22 INTERPRETIVE STATEMENTS: Sinus bradycardia Left axis deviation Septal infarct, age undetermined Abnormal ECG Compared to ECG 10/09/2017 16:20:36 T-wave abnormality no longer present Possible ischemia no longer present Prolonged QT interval no longer present Myocardial infarct finding still present Electronically Signed On 09-15-18 10:38:27 CDT by Shen Rush
== END 2018-09-14 23:34 | disposition short-term general hospital (02) ==
LOC: ER 16:04
DX: N19 Unspecified kidney failure (principal); E83.42 Hypomagnesemia; I63.9 Cerebral infarction, unspecified; E11.9 Type 2 diabetes mellitus without complications; E78.00 Pure hypercholesterolemia, unspecified; I10 Essential (primary) hypertension; Z79.4 Long term (current) use of insulin
CPT/HCPCS: 96365; 93005; 85025; 80048; 36415; 83735; 85610; 82962; 80076; 84484; 83880; 70450; 71045; 93880; 70551; 99285; 96366; J3475; J7030